=== PATIENT | male | born 2000 | race Hispanic/Latino ===

== ENCOUNTER 2023-11-24 14:25 | Emergency (ER) | payer SELFPAY ==
[2023-11-24 15:45] VITALS: BP 152/101
--- NOTE | 2023-11-24 16:23 | ED.GENMED ---
History of Present Illness
General
Chief Complaint: Skin Surface Trauma
Source: patient
Time Seen by Provider: 11/24/23 15:37
Travel History
Have you had any contact with someone who has COVID-19?: No
Do you have any symptoms of coronavirus? Fever > 100 degrees, chills, cough, shortness of breath, sore throat, loss of taste or smell, muscle aches, or headache?: No
History of Present Illness
History of Present Illness:
23-year-old male presents to the emergency room complaining of a laceration to his left hand. 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 Patient is right-hand dominant. Patient describes the
wound as acute and bleeding profusely. Initially he felt like his thumb was numb but he has normal sensation now. He was holding a lot of pressure on the area which may have contributed. Patient does not take any prescription medications. He
does not recall when his last tetanus shot was.
Phy Exam
Physical Exam
Physical Exam:
General: Awake, Alert, Oriented X3. No acute distress.
Vitals: unremarkable
Head: Atraumatic
Eyes: Pupils equal, EOMI
Throat: Airway intact, no exudates
Neck: Trachea midline
Neuro: Nonfocal
Skin: Warm, dry, no rash
Extremities: pulses equal b/l, no edema. Approximately 2 cm laceration noted to the thenar eminence of the left hand. Range of motion seems limited with opposition to the fifth digit. Sensation in the thumb is intact. Capillary refill is brisk.
Evaluation of the laceration reveals some muscular involvement but I do not identify any large neurovascular structures.
Course
Orders/Labs/Results
Orders:
Orders
11/24/23 16:23
Tetanus/Diphth/Acelpertussis [Adacel] 0.5 ml IM .ONCE ONE
Vital Signs
Initial and Last Documented VS:
Initial Vital Signs
Temp Pulse Resp Pulse Ox
98.7 F 148 18 98
11/24/23 14:28 11/24/23 14:28 11/24/23 14:28 11/24/23 14:28
Last Documented Vital Signs
Temp Pulse Resp BP Pulse Ox
98.7 F 111 16 152/101 97
11/24/23 14:28 11/24/23 15:45 11/24/23 15:45 11/24/23 15:45 11/24/23 15:45
Procedures
Laceration Closure
Left Hand:
Status of Wound: clean
Description of Wound Edges: ragged
Preparation: cleaned with saline
Anesthesia: 1% Lidocaine with epi
Revision/Debridement: routine- no revision
Wound exploration: explored to base- no FB and no tendon involvement
Type of Closure: layered closure
Skin Closure Material: 4-0 nylon (9 simple interrupted) and 5-0 vicryl (2)
Number of sutures: 11
MDM/Problems Addressed
Differential Diagnosis Includes:
Skin laceration, arterial injury, nerve injury
MDM/Problems Addressed:
Wound closed with a combination of deep and superficial sutures. I did not identify any tendon injury. Limitation of movement may be due to actual involvement of the musculature. Patient instructed to follow-up with hand surgery. Tetanus updated
*Critical Care Note
Total Time (30-74mins, 75-104mins- exclusive of procedures): Not Applicable
ED Attending Note
-
Portions of this chart may have been created with voice recognition software.� Occasional wrong word or��sound alike� substitutions may have occurred due to the inherent limitations of voice recognition software.
Discharge Plan
Departure
Patient Disposition: Home (Routine Discharge)
Date of Disposition: 11/24/23
Time of Disposition: 16:23
Patient with high blood pressure during this ER visit?: Yes
Condition: Good
Discharge Problem:
Laceration of left hand
Instructions: Laceration Repair With Stitches (DC), BLOOD PRESSURE
Referrals:
Crispin Lobato MD [Active] -
Activity Restrictions/Additional Instructions:
We placed a total of 11 stitches two of which are 'inside'. Because the movement of your thumb seems limited it is important that you follow up with a hand surgeon. I have given you the contact information for Dr Lobato, who is a hand surgeon
here but you can certainly follow up with a hand surgeon closer to your home. Return to the ER if you begin having increasing pain, redness or pus coming from the injury.
Interventions
Interventions:
*Risk Screen - Suicide Last Done: 11/24/23 14:30
*General Assessment Last Done: 11/24/23 14:30
*Neglect/Abuse Screening Last Done: 11/24/23 14:30
*ED COVID-19 Vaccine History Last Done: 11/24/23 15:18
ED-Skin Assessment Last Done: 11/24/23 15:18
[2023-11-24] MEDS: ADACEL 0.5 ML IM (16:26)
[2023-11-24 16:32] VITALS: BP 173/113
== END 2023-11-24 16:47 | disposition home or self-care (01) ==
LOC: EMR 14:25
PROVIDERS: EMERGENCY PHYSICIAN Emergency Medicine
DX: S61.412A Laceration without foreign body of left hand, initial encounter (principal); W45.8XXA Other foreign body or object entering through skin, initial encounter
CPT/HCPCS: 99283; 12001; 90471; 90715